=== PATIENT | female | born 1960 | race Caucasian/White ===

== ENCOUNTER 2021-02-15 15:53 | Emergency (ER) | payer BC, OTHER ==
[2021-02-15] MEDS ORDERED: Aspirin 81 MG Tab.Chew PO ONE (16:08)
[2021-02-15] MEDS ORDERED: GI Cocktail Oral Solution 30 ML PO ONE ×2 (16:09→16:32)
[2021-02-15] MEDS ORDERED: Nitroglycerin 0.4 MG Tab.SL SL ONE (16:11)
--- NOTE | 2021-02-15 16:11 | PCM.EKG ---
#1 Interpretation EKG Date: 02/15/21 Time: 15:54 Rhythm: NSR Rate (Beats/Min): 111 [place]: Normal P-Wave: Present QRS: Normal ST-T: Depressed (EKG says inferior although I question lateral as well.) Comparison: NA - No Prior EKG
[2021-02-15 16:25] LABS: ANION GAP 15.9 mEq/L (7-13); CHLORIDE,CL 105 mmol/L (98-107); SODIUM,NA 142 mmol/L (136-145)
--- NOTE | 2021-02-15 16:26 | CR ---
EXAMINATION: Chest 2V SEX: Female AGE: 60 years CLINICAL HISTORY: 60-year-old female shortness of breath and chest pain. No comparisons immediately available. Interpretation: Negative. Hypertrophic arthritic changes of the spine. Normal cardiac silhouette (size and configuration). External csr leads. No pulmonary vascular congestion, cephalization of flow, alveolar edema or dependent pleural effusion. No lung mass or hilar lymphadenopathy. Tracheobronchial airway unremarkable. No alveolar infiltrate, atelectasis/collapse, or peripheral "groundglass" interstitial lung densities. No pneumothorax or pneumomediastinum. No free subdiaphragmatic air.
--- NOTE | 2021-02-15 16:27 | EDM.PDOC ---
ED HPI GENERAL MEDICAL PROBLEM - General Chief Complaint: Chest Pain Stated Complaint: CHEST PRESSURE Time Seen by Provider: 02/15/21 16:00 Source of Information: Reports: Patient History Limitations: Reports: No Limitations - History of Present Illness INITIAL COMMENTS - FREE TEXT/NARRATIVE: Patient comes emergency department today from home with complaints of chest pressure. This patient developed sharp shooting stabbing chest pain about 9:00 last night that was waxing and waning on its own. She was not overtly concerned about it at that time so she went home. This morning when she woke up she had a constant pressure on her mid sternum. It took her 4 hours to do her typical chores that would take her 1 hours. She has no energy she is quite fatigued. She has had some shortness of breath. The pain in her chest is not radiated anywhere. She is not any weakness dizziness lightheadedness palpitations or syncope. She has had no history of blood clots. She has no pain in her legs or calves. She has no abdominal pain nausea or vomiting. She has no hematuria dysuria urinary frequency. No black or tarry stools. She reports that she has no history of high blood pressure high cholesterol. She did smoke in the past. She has a history of diverticulosis. She has not taken anything for the pain prior to arrival. Patient's pressure on her chest is constant. - Related Data Allergies Allergy/AdvReac Type Severity Reaction Status Date / Time adhesive tape Allergy Rash Verified 02/15/21 16:11 cyclobenzaprine Allergy Nervousness Verified 02/15/21 16:11 [From Flexeril] Sulfa (Sulfonamide Allergy Facial Verified 02/15/21 16:11 Antibiotics) Swelling Home Meds: Home Meds . [No Known Home Meds] 05/23/16 [History] ED ROS GENERAL - Review of Systems Review Of Systems: Comprehensive ROS is negative, except as noted in HPI. ED EXAM, GENERAL - Physical Exam Exam: See Below Exam Limited By: No Limitations General Appearance: Alert, WD/WN, No Apparent Distress Eye Exam: Bilateral Eye: EOMI, PERRL Ears: Normal External Exam, Normal TMs Nose: Normal Inspection, Normal Mucosa Throat/Mouth: Normal Inspection, Normal Lips, Normal Oropharynx, Normal Voice Head: Atraumatic, Normocephalic Neck: Normal Inspection, Supple, Non-Tender, Full Range of Motion Respiratory/Chest: No Respiratory Distress, Lungs Clear, Normal Breath Sounds, No Accessory Muscle Use, Chest Non-Tender Cardiovascular: Normal Peripheral Pulses, Regular Rate, Rhythm, No Murmur Peripheral Pulses: 2+: Radial (L), Radial (R), Posterior Tibial (L), Posterior Tibial (R), Dorsalis Pedis (L), Dorsalis Pedis (R) GI/Abdominal: Normal Bowel Sounds, Soft, Tender (She has quite a bit of tenderness in the epigastric region. No right upper quadrant left upper quadrant tenderness.). No: Guarding, Rigid, Rebound (Female) Exam: Deferred Rectal (Female) Exam: Deferred Back Exam: Normal Inspection, Full Range of Motion Neurological: Alert, Oriented, Normal Cognition, No Motor/Sensory Deficits Psychiatric: Normal Affect, Normal Mood Skin Exam: Warm, Dry, Intact, Normal Color, No Rash Course - Vital Signs Last Recorded V/S: Last Vital Signs Temp 98.4 F 02/15/21 16:07 Pulse 80 02/15/21 16:07 Resp 14 02/15/21 16:07 BP 130/64 02/15/21 16:26 Pulse Ox 100 02/15/21 16:07 - Orders/Labs/Meds Labs: Laboratory Tests 02/15/21 02/15/21 02/15/21 Range/Units 15:57 15:57 15:57 WBC 8.7 (5.0-10.0) 10^3/uL RBC 4.39 (4.2-5.4) 10^6/uL Hgb 14.2 (12.0-16.0) g/dL Hct 42.1 (37.0-47.0) % MCV 95.9 (80-100) fL MCH 32.3 (27.0-34.0) pg MCHC 33.7 (33.0-35.0) g/dL Plt Count 320 (150-450) 10^3/uL Neut % (Auto) 70.4 (42.2-75.2) % Lymph % (Auto) 18.6 L (20.5-50.1) % [place] % (Auto) 9.9 H (2-8) % Eos % (Auto) 1.0 (1.0-3.0) % Baso % (Auto) 0.1 (0.0-1.0) % D-Dimer, Quantitative 293 (0-400) ng/mL Sodium 142 (136-145) mmol/L Potassium 3.9 (3.5-5.1) mmol/L Chloride 105 (98-107) mmol/L Carbon Dioxide 25 (21-32) mmol/L Anion Gap 15.9 H (7-13) mEq/L BUN 14 (7-18) mg/dL Creatinine 0.88 (0.55-1.02) mg/dL Est Cr Clr Drug Dosing 65.23 mL/min Estimated GFR (MDRD) > 60 BUN/Creatinine Ratio 15.9 (No establ ref range) Glucose 98 (70-99) mg/dL Calcium 9.5 (8.5-10.1) mg/dL Total Bilirubin 0.8 (0.2-1.0) mg/dL AST 20 (15-37) U/L ALT 34 (14-59) U/L Alkaline Phosphatase 86 (46-116) U/L Troponin I High Sens < 4 (<=51) pg/mL Total Protein 7.5 (6.4-8.2) g/dL Albumin 4.0 (3.4-5.0) g/dL Globulin 3.5 Albumin/Globulin Ratio 1.1 Lipase 52 L (73-393) U/L Meds: Medications Discontinued Medications Generic Name Dose Route Start Last Admin Trade Name Freq PRN Reason Stop Dose Admin Al Hydroxide/Mg Hydroxide 30 ml 02/15/21 16:09 02/15/21 17:06 Gi Cocktail Oral Solution 30 Ml PO 02/15/21 16:10 Not Given ONETIME ONE Al Hydroxide/Mg Hydroxide 30 ml 02/15/21 16:32 02/15/21 16:40 Gi Cocktail Oral Solution 30 Ml PO 02/15/21 16:33 30 ml ONETIME ONE Administration Aspirin 324 mg 02/15/21 16:08 02/15/21 16:25 Aspirin 81 Mg Tab.Chew PO 02/15/21 16:09 324 mg ONETIME ONE Administration Nitroglycerin 0.4 mg 02/15/21 16:11 02/15/21 16:26 Nitroglycerin 0.4 Mg Tab.Sl SL 02/15/21 16:12 0.4 mg ONETIME ONE Administration - Radiology Interpretation Free Text/Narrative:: Chest x-ray per radiology normal cardiac silhouette. No CHF cephalization edema pleural effusion. No lung mass or lymphedema. No infiltrate atelectasis collapse or densities. No pneumo pneumomediastinum no free subdiaphragmatic air. - Re-Assessments/Exams Free Text/Narrative Re-Assessment/Exam: EKG completed without any ST elevation when reviewed extemporaneously by myself. No depression either. Aspirin 324 orally. 1 sublingual nitro without any change in the patient symptomology. Chest x-ray labs ordered. Laboratory evaluation is rather unremarkable with a normal CBC. Normal D-dimer. CMP unremarkable. Troponin less than 4 high-sensitivity with pain since 2100 last night. Lipase is low at 52. GI cocktail with complete resolution of her symptoms. Epigastric region is not tender as it was before. Patient has had over 12 hours of chest pain and still has a negative high- sensitivity troponin. Her chest x-ray is unremarkable. She had complete resolution of her symptomology with a GI cocktail. This is really is a sequelae of GERD. We will start her on Carafate and omeprazole. Although with her fatigue which is the only symptom that has not resolved with a GI cocktail I still have some underlying concern for cardiac pathology just nothing acute at this time. I think it is highly important for her to have a follow-up stress test as well. She is understanding of this and her questions were answered. Departure - Departure Time of Disposition: 17:49 Disposition: Home, Self-Care 01 Clinical Impression: Non-cardiac chest pain GERD (gastroesophageal reflux disease) Qualifiers: Esophagitis presence: esophagitis presence not specified Qualified Code(s): K21.9 - Gastro-esophageal reflux disease without esophagitis Instructions: Food Choices for Gastroesophageal Reflux Disease, Adult, Nonspecific Chest Pain, Adult, [id number], Gastroesophageal Reflux Disease, Adult, [id number] Forms: ED Department Discharge Additional Instructions: No fatty spicy foods. If acute symptoms of Reflux or heartburn develop OTC Maalox or Mylanta as needed for acute pain. If symptoms do not resolve with Maalox or Mylanta recheck in urgent care or ED. Omeprazole 1 tablet daily for the next 28 days. Carafate 1 tablet 4 times a day. 1/2 before meals and bedtime for the next 28 days. RX given to the patient. Return to the ED if new or worsening symptoms Follow up with PCP in a week and consider outpatient stress test. Sepsis Event Note (ED) - Evaluation Sepsis Screening Result: No Definite Risk
== END 2021-02-15 17:57 | disposition home or self-care (01) ==
LOC: DL.ED 15:53
DX: K21.9 Gastro-esophageal reflux disease without esophagitis (principal); Z88.2 Allergy status to sulfonamides; Z91.048 Other nonmedicinal substance allergy status; Z88.8 Allergy status to other drugs, medicaments and biological substances
CPT/HCPCS: 36415; 71046; 80053; 83690; 84484; 85025; 85379; 93005; 99285; A9270; 93010; 99284